=== PATIENT | male | born 1950 | race Caucasian/White ===

== ENCOUNTER → 2022-04-07 | Outpatient (CLI) | payer MEDICARE, MEDICAID | END | disposition home or self-care (01) | LOC: RADPV 12:07 | PROVIDERS: ATTEND Nurse Practitioner | DX: N43.3 Hydrocele, unspecified (principal); I86.1 Scrotal varices; N50.3 Cyst of epididymis; N50.811 Right testicular pain | CPT/HCPCS: 76870 ==